=== PATIENT | male | born 1965 | race African-American/Black ===

== ENCOUNTER 2018-10-27 16:32 | Emergency (ER) | payer SELFPAY ==
[~2018-10-27] VITALS: Ht 182.9 cm; Wt 86.2 kg
[2018-10-27 16:37] VITALS: Ht 182.9 cm; Wt 86.2 kg
[2018-10-27 17:29] VITALS: BP 133/80
== END 2018-10-27 17:45 | disposition home or self-care (01) ==
LOC: ED 16:32
DX: S01.112A Laceration without foreign body of left eyelid and periocular area, initial encounter (principal); Z88.0 Allergy status to penicillin; Y04.8XXA Assault by other bodily force, initial encounter; Y93.89 Activity, other specified; Y92.89 Other specified places as the place of occurrence of the external cause; Y99.8 Other external cause status